=== PATIENT | female | born 1955 | race Hispanic/Latino ===

== ENCOUNTER 2021-11-28 08:15 | Observation (INO) | payer OTHER ==
[2021-11-24 13:37] LABS: BASOPHILS % (AUTO) 0.8 % (0.0-5.0); EOSINOPHILS % (AUTO) 1.4 % (0.0-8.0); HEMATOCRIT 39.4 % (36-48); LYMPHOCYTES % (AUTO) 31.8 % (21.0-51.0); MEAN CORPUSCULAR HEMOGLOBIN 28.2 pg (27.0-33.0); MEAN CORPUSCULAR HGB CONC 32.7 g/dL (32.0-36.0); MEAN CORPUSCULAR VOLUME 86.2 fL (79-99); MONOCYTES % (AUTO) 5.5 % (3.0-13.0); NEUTROPHILS % (AUTO) 60.3 % (40.0-77.0); PLATELET COUNT (AUTO) 248 K/uL (130-400); RED BLOOD CELL COUNT(AUTO) 4.57 MIL/uL (4.00-5.50); RED CELL DISTRIBUTION WIDTH 13.8 % (11.0-15.5); WHITE BLOOD COUNT (AUTO) 8.3 K/uL (4.8-10.8)
[2021-11-24 13:46] LABS: INR 1.01 (0.85-1.15)
[2021-11-24 13:48] LABS: CREATININE 0.5 mg/dL (0.5-1.5); PARTIAL THROMBOPLASTIN TIME 29.5 SEC (26.3-35.5); POTASSIUM 4.1 mmol/L (3.5-5.1)
[2021-11-27 09:25] VITALS: BP 150/53
[~2021-11-28] VITALS: Ht 149.9 cm; Wt 70.6 kg
[2021-11-28] VITALS (22 sets, daily range): BP systolic 111–161; BP diastolic 50–79
[~2021-11-28 08:15] MED LIST: AMLO-257 PO; CEFAZOLIN SODIUM 1 GM VIAL IVP ONE; HYDR-4153 PO; ICOS0.5C PO; LACTATED RINGERS 1000ML 1,000 ML IV SCH; LOSA100T58 PO; SEMA3TAB PO; SITA1TAB6 PO
[2021-11-28] MEDS ORDERED: 0.9%NACL 1000ML 1,000 ML IV ONE (08:56)
[2021-11-28] MEDS ORDERED: TRANEXAMIC ACID 1000MG/10ML ONE (11:24)
[2021-11-28] MEDS ORDERED: PROPOFOL 1000 MG/100 ML 100 ML IV ONE (11:28)
[2021-11-28] MEDS ORDERED: ONDANSETRON 4MG INJ ONE (11:31)
[2021-11-28] MEDS ORDERED: MIDAZOLAM HCL 1 MG/ML 2ML VIAL ONE (11:31)
[2021-11-28] MEDS ORDERED: 0.9%NACL 10ML VIAL ONE (11:58)
[2021-11-28] MEDS ORDERED: DEXAMETHASONE SOD PHOSPHATE 10MG/ML 1ML VIAL ONE (11:58)
[2021-11-28] MEDS ORDERED: EPHEDRINE SULFATE 50 MG/ML AMPULE ONE (12:04)
[2021-11-28] MEDS ORDERED: CEFAZOLIN SODIUM 2 GM VIAL IV ONE (12:06)
[2021-11-28] MEDS ORDERED: ONDANSETRON 4MG INJ IVP PRN (12:30)
[2021-11-28] MEDS ORDERED: HYDROCODONE/ACETAMINOPHEN 5/325 MG TAB PO PRN (12:30)
[2021-11-28] MEDS ORDERED: ACETAMINOPHEN 500 MG TABLET PO SCH ×2 (12:30→21:00)
[2021-11-28] MEDS ORDERED: PROPOFOL 10 MG/ML 20ML VIAL IV ONE (13:39)
[2021-11-28] MEDS: 0.9%NACL 1000ML 1,000 ML IV SCH (15:41)
[2021-11-28] MEDS: INSULIN HUMULIN R 100 UNIT/ML 3ML SQ SCH ×2 (16:30→21:27)
[2021-11-28] MEDS ORDERED: PHARMACY COMMUNICATION MISC SCH (17:00)
[2021-11-28] MEDS: TRAMADOL HCL 50 MG TABLET PO SCH (18:04)
[2021-11-28] MEDS: CEFAZOLIN SODIUM 1 GM VIAL IVP SCH (18:05)
[2021-11-28] MEDS: HYDROCODONE/ACETAMINOPHEN 10/325 MG TAB PO PRN (21:18)
[2021-11-28] MEDS: CELECOXIB 200 MG CAP PO SCH (21:18)
[2021-11-28] MEDS: FAMOTIDINE 20MG TAB PO SCH (21:18)
[2021-11-28] MEDS: ASPIRIN 81 MG EC TAB PO SCH (21:18)
[2021-11-28] MEDS: ACETAMINOPHEN 500 MG TABLET PO SCH (21:20)
[2021-11-29] MEDS: CEFAZOLIN SODIUM 1 GM VIAL IVP SCH (00:53)
[2021-11-29] MEDS: TRAMADOL HCL 50 MG TABLET PO SCH ×5 (00:53→23:19)
[2021-11-29] MEDS: 0.9%NACL 1000ML 1,000 ML IV SCH ×2 (00:56→08:30)
[2021-11-29 04:31] VITALS: BP 111/59
[2021-11-29 05:57] LABS: HEMATOCRIT 32.9 % (36-48); MEAN CORPUSCULAR HGB CONC 32.8 g/dL (32.0-36.0); MEAN CORPUSCULAR VOLUME 85.2 fL (79-99); RED BLOOD CELL COUNT(AUTO) 3.86 MIL/uL (4.00-5.50); WHITE BLOOD COUNT (AUTO) 10.8 K/uL (4.8-10.8)
[2021-11-29] MEDS: ACETAMINOPHEN 500 MG TABLET PO SCH ×3 (06:04→22:14)
[2021-11-29 06:05] LABS: CREATININE 0.5 mg/dL (0.5-1.5); POTASSIUM 4.3 mmol/L (3.5-5.1)
[2021-11-29] MEDS: INSULIN HUMULIN R 100 UNIT/ML 3ML SQ SCH ×4 (06:05→20:43)
[2021-11-29 07:58] VITALS: BP 114/59
[2021-11-29] MEDS: CELECOXIB 200 MG CAP PO SCH ×2 (08:14→19:40)
[2021-11-29] MEDS: ASPIRIN 81 MG EC TAB PO SCH ×2 (08:14→19:40)
[2021-11-29] MEDS: POLYETHYLENE GLYCOL 3350 17 GM POWD.PACK PO SCH (08:15)
[2021-11-29] MEDS: SEMAGLUTIDE 3 MG PO SCH (08:15)
[2021-11-29] MEDS: FAMOTIDINE 20MG TAB PO SCH ×2 (08:15→19:40)
[2021-11-29] MEDS ORDERED: ROPIVICAINE 250MG+KETOROLAC 15MG+EPINEPHRINE 0.3+CLONIDINE 80 IV PRN ×5 (08:43)
[2021-11-29] MEDS: HYDRALAZINE 25MG TABLET PO SCH (09:00)
[2021-11-29] MEDS: AMLODIPINE 5 MG TAB PO SCH (09:00)
[2021-11-29] MEDS: LOSARTAN 100 MG TABLET PO SCH (09:00)
[2021-11-29] MEDS: HYDROCODONE/ACETAMINOPHEN 10/325 MG TAB PO PRN ×2 (10:03→18:54)
[2021-11-29 11:45] VITALS: BP 123/68
[2021-11-29] MEDS: MORPHINE 4 MG SYG IVP PRN ×2 (15:26→20:50)
[2021-11-29 16:01] VITALS: BP 133/72
[2021-11-29 20:58] VITALS: BP 153/66
[2021-11-30 00:26] VITALS: BP 150/64
[2021-11-30] MEDS: HYDROCODONE/ACETAMINOPHEN 10/325 MG TAB PO PRN ×2 (04:12→09:17)
[2021-11-30 04:46] VITALS: BP 161/61
[2021-11-30] MEDS: TRAMADOL HCL 50 MG TABLET PO SCH ×2 (05:43→14:46)
[2021-11-30] MEDS: ACETAMINOPHEN 500 MG TABLET PO SCH ×2 (05:43→14:46)
[2021-11-30] MEDS: INSULIN HUMULIN R 100 UNIT/ML 3ML SQ SCH ×3 (06:07→16:39)
[2021-11-30 07:49] VITALS: BP 144/72
[2021-11-30] MEDS: AMLODIPINE 5 MG TAB PO SCH (08:48)
[2021-11-30] MEDS: CELECOXIB 200 MG CAP PO SCH (08:48)
[2021-11-30] MEDS: ASPIRIN 81 MG EC TAB PO SCH (08:48)
[2021-11-30] MEDS: POLYETHYLENE GLYCOL 3350 17 GM POWD.PACK PO SCH (08:49)
[2021-11-30] MEDS: FAMOTIDINE 20MG TAB PO SCH (08:49)
[2021-11-30] MEDS: SEMAGLUTIDE 3 MG PO SCH (08:50)
[2021-11-30 11:13] VITALS: BP 136/78
[2021-11-30] MEDS: HYDRALAZINE 25MG TABLET PO SCH (11:26)
[2021-11-30 16:26] VITALS: BP 138/76
[2021-11-30] MEDS: LOSARTAN 100 MG TABLET PO SCH (16:36)
[2021-12-01] MEDS ORDERED: BISACODYL 10 MG SUPP.RECT RC PRN (12:30)
== END 2021-11-30 18:00 | disposition home or self-care (01) ==
LOC: DAH 08:15 → DAHIP 08:16 → 3AH 15:13
PROVIDERS: ADMIT Orthopaedic Surgery; ATTEND Orthopaedic Surgery
DX: M17.11 Unilateral primary osteoarthritis, right knee (principal); Z20.822 Contact with and (suspected) exposure to COVID-19; I10 Essential (primary) hypertension; E78.00 Pure hypercholesterolemia, unspecified; E11.9 Type 2 diabetes mellitus without complications; Z90.710 Acquired absence of both cervix and uterus; Z79.01 Long term (current) use of anticoagulants; Z79.899 Other long term (current) drug therapy
CPT/HCPCS: 27447; S2900; 36415; 80048; 82948; 85025; 85027; 85610; 85730; 87635; 87641; 96374; 96375; 96376; 97039; A4344; C9803; G0378; J0690; J1100; J1815; J2250; J2270; J2405; J2704; J3490; J7030